=== PATIENT | female | born 1945 | race Caucasian/White ===

== ENCOUNTER 2016-08-24 06:59 | Day surgery (SDC) | payer MEDICARE ==
[~2016-08-24] VITALS: Ht 170.2 cm; Wt 73.6 kg
[2016-08-24] VITALS (10 sets, daily range): BP systolic 127–166; BP diastolic 62–78; PULSE 55–64; RESP 9–16; O2SAT 95–99
[~2016-08-24 06:59] MED LIST: ACET325T51 PO; CHOL5000 PO; FAMCICLOVIR; NAPR220C11 PO; THYR120T2 PO
[2016-08-24] MEDS ORDERED: fentaNYL-PF 50 mCg/mL 2 mL Inj ONE (07:00)
[2016-08-24] MEDS ORDERED: Dexamethasone 4 mg/mL Inj ONE (07:00)
[2016-08-24] MEDS ORDERED: MetoCLOpramide 5 mg/mL 2 mL Inj ONE (07:00)
[2016-08-24] MEDS ORDERED: Propofol 10,000 mCg/mL 20 mL Inj ONE (07:00)
[2016-08-24] MEDS ORDERED: Ketamine 10 mg/mL 20 mL Inj ONE (07:00)
[2016-08-24] MEDS ORDERED: Ondansetron 2 mg/mL 2 mL Inj ONE (07:00)
[2016-08-24] MEDS: Lactated Ringer's 1,000 ML IV SCH ×2 (07:17→08:41)
[2016-08-24] MEDS ORDERED: Lactated Ringer's 1,000 ML IV SCH (08:33)
[2016-08-24] MEDS ORDERED: Lactated Ringer's 500 ML IV PRN (08:33)
--- NOTE | 2016-08-24 08:33 | PCM.HPANE ---
Patient Data Surgeon Admitting Provider: Attending Provider:Arnaldo Dillon DO Primary Care Physician:Alphonso Montgomery MD Other Provider:Giles Felton Anesthesia Reason for Visit Right Knee Medial & Lateral Meniscus Tear Ht/WT & BMI Height (Feet): 5 Height (Inches): 7 Weight (Kilograms): 73.6 Body Mass Index 25.00 Allergies Coded Allergies: No Known Allergies (Unverified , 08/20/16) Past Anesthesia History Anesthesia History: Denies:: Abnormal Airway, Anesthesia Reactions, Difficult Intubation, Fam Anesthesia Reaction Diabetes History Hx Diabetes?: No MRSA MRSA: No Medications Hypertension Medication: No Home Meds Incl Beta Valerie: No Reported Medications [famcicilovir] No Conflict [id number] Mg Q8H takes when suspects shingles is coming on 08/23/16 Acetaminophen 325 Mg [id number] Mg PO Q4H PRN For Fever Ref 0 08/20/16 Naproxen Sodium (Aleve)220 Mg [id number] Mg PO Q12H PRN For Pain 08/20/16 Cholecalciferol (Vitamin D3) (Vitamin D3)5,000 Unit Capsule5,000 Unit PO DAILY 08/20/16 Thyroid,Pork ([place] Thyroid)120 Mg [id number] Mg PO DAILY 08/20/16 History HEENT History: Denies:: Abnormal Airway Cataracts Difficult Intubation Dysphagia Glaucoma Hearing Problem Sinus Problem TMJ Cardiovascular History: Denies:: AICD Abdominal Aortic Aneurism Atrial Fibrillation Chest Pain Congestive Heart Failure Coronary Artery Disease Edema Heart Murmur Hypertension Irregular Heartbeat Pacemaker Peripheral Vascular Rheumatic Fever Thrombophlebitis Hx of Respiratory Problem?: No Respiratory History: Denies:: Asthma COPD Emphysema Oxygen Administration Pneumonia Pulmonary Embolism Tuberculosis Use of C-PAP Machine Use of Inhalers / NEBS Hx Neurologic Problems?: No Neurological History: Denies:: Alzheimer's Disease CVA Dementia Dizziness Headaches Multiple Sclerosis Parkinson's Disease Seizures TIA Hx of GI Problems?: Yes Gastrointestinal History: Positive for:: Gall Bladder Disease (removed) Denies:: Cirrhosis Gastroesphageal Reflux Gastrointestinal Bleeding Hepatitis Liver Disease Hx of Problems?: No Genitourinary History: Denies:: Kidney Stones Urinary Tract Infection Female Hx: Denies:: Currently Problems with Breasts? Skin History: Denies:: History Skin Disorders? Pressure Ulcers Hx Musculoskeletal Problems?: Yes Musculoskeletal History: Positive for:: Musculoskeletal Trauma (right knee current admission problem) Osteoarthritis (right knee) Denies:: Back Injury Fibromyalgia Joint Replacement Systemic Lupus Hx of Psycho/Social Problems?: No Psycho Social History: Denies:: Anxiety Hx Depression Hx Surgeries?: Yes (corrine, c section) Hx Any Other Health Problems?: Yes Other History: Positive for:: Cancer (BCC- back, right leg ankle ) Thyroid Disease (on Rx) History Blood Transfusions: Positive for:: Accept Blood Products? Denies:: Blood Transfusions Hx Diabetes: No Hx Alcohol Use: NoHx Substance Use: NoHave You Smoked inLast 12 mo: No Stop/Bang Treated for Sleep Apnea?: No Do You Have a CPAP Machine?: No S-Snoring: Do You Snore Loudly: No T-Tired: feel tired, fatigued: No O-Obsered: Observed not breath: No P-Blood Pressure: treated: No B- Body Mass Index > 35 kg/m2: No A- Age over 50: Yes N- Neck Large Circumference: Yes G- Gender Male: No DARREL Total Score: 1 DARREL Risk Assessment: Low Risk, <3 Yes Risk Assessment Category Category 1A: Patient has history of documented sleep apnea, and HAS NOT received any narcotic, sedative or anesthesia administration during this stay. Category 1B: Patient has history of documented sleep apnea, and HAS received any narcotic , sedative or anesthesia administration during this stay Category 2: Patient has SUSPECTED Obstructive Sleep Apnea, and HAS received any narcotic , sedative or anesthesia administration during this stay. Category 3: Patient has SUSPECTED Obstructive Sleep Apnea and HAS NOT received narcotic, sedative or anesthesia administration during this stay. Category 4: Outpatient in Procedural Areas with known sleep apnea or who screen positive for High Risk via the STOP/BANG questionnaire. Exam Exam Vital Signs Vital Signs Date Time Temp Pulse Resp B/P Pulse Ox O2 Delivery O2 Flow Rate FiO2 08/24/16 07:31 35.7 64 16 166/78 95 Room Air General Appearance: Oriented X3 HEENT/AIRWAY: MP 2 Lungs: Normal Air Movement Heart: Regular Rate/Rhythm Meds/Labs/Diagnostics Admission Meds Current Medications Lactated Ringer's (Lr) 1,000 ml @ 120 mls/hr Q8H20M IV Last administered on t 07:17; Start 08/24/16 at 05:00; Stop 08/24/16 at 13:19 Plan Impression Patient chart reviewed, patient interviewed and anesthestic plan with risks, benefits, and alternatives discussed, and informed consent obtained. NPO Status: 08/23/16 1800 ASA Physical Status: ASA2 Mod Systemic Disease Anesthetic Plan: GA Bene/Risks/Altern/Consents: Yes HP Complete Prior to Induction: Yes Umair Mueller MD Aug 24, 2016 08:33
[2016-08-24] MEDS ORDERED: fentaNYL-PF 50 mCg/mL 2 mL Inj IVPUSH PRN (08:35)
[2016-08-24] MEDS ORDERED: HYDROmorphone 1 mg/mL Inj IVPUSH PRN (08:35)
[2016-08-24] MEDS ORDERED: Phenylephrine 10,000 mCg/mL Inj IVPUSH PRN (08:35)
[2016-08-24] MEDS ORDERED: Ondansetron 2 mg/mL 2 mL Inj IVPUSH PRN (08:35)
[2016-08-24] MEDS ORDERED: Dexamethasone 4 mg/mL Inj IVPUSH PRN (08:35)
[2016-08-24] MEDS ORDERED: EPHEDrine Sulfate 50 mg/mL Inj IVPUSH PRN (08:35)
[2016-08-24] MEDS ORDERED: MetoCLOpramide 5 mg/mL 2 mL Inj IVPUSH PRN (08:35)
[2016-08-24] MEDS ORDERED: Ropivacaine-PF 0.5% 30 mL Inj INFILTRATE ONE (08:55)
[2016-08-24] MEDS ORDERED: Lidocaine 2%-Epi 1:100,000 20 mL Inj INFILTRATE ONE (08:55)
[2016-08-24] MEDS ORDERED: HYDROcodone-APAP 5-325 mg Tablet PO PRN (09:55)
[2016-08-24] MEDS ORDERED: Lactated Ringer's 1,000 ML IV ONE (10:33)
--- NOTE | 2016-08-24 12:41 | PCM.ANEP1 ---
Post Anesthesia Phase 1 PACU Phase 1 Assessment Vital Signs Vital Signs Date Time Temp Pulse Resp B/P Pulse Ox O2 Delivery O2 Flow Rate FiO2 08/24/16 11:00 64 14 150/70 96 Room Air 08/24/16 10:30 64 10 156/68 98 Nasal Cannula 2 08/24/16 10:15 62 9 153/66 96 Room Air 08/24/16 10:05 36.0 62 9 133/66 99 Room Air 08/24/16 10:00 60 10 146/70 99 Simple Mask 8 08/24/16 09:55 59 10 135/63 99 Room Air 08/24/16 09:50 60 13 139/78 99 Simple Mask 8 08/24/16 09:45 55 10 133/65 99 Simple Mask 8 08/24/16 09:40 36.4 57 10 127/62 99 Simple Mask 8 08/24/16 07:31 35.7 64 16 166/78 95 Room Air Anesthetic Administered: GA Level of Alertness: Awake, talking Pain: No Nausea or Vomiting: No Airway Device: Oralpharangeal Airway Oxygen Delivery: Room Air Lungs: Normal Air Movement Umair Mueller MD Aug 24, 2016 12:41
--- NOTE | 2016-08-24 12:42 | PCM.ANEP2 ---
Post Anesthesia Evaluation ASA/CMS Post Anesthesia VS in Patient's Normal Range?: Yes Resp Stable; Airway Patent?: Yes CV Function & Hydration Stable: Yes Mental Status Recovered?: Yes Pain control Satisfactory?: Yes N/V Control Satisfactory?: Yes Umair Mueller MD Aug 24, 2016 12:41
--- NOTE | 2016-08-24 14:37 | OP ---
[address] [address] OPERATIVE REPORT PATIENT: FADI BEGUM : 1945 MR#: [id number] ADMIT: 08/24/2016 JOB ID: [id number] DATE OF SURGERY: 08/24/2016 PREOPERATIVE DIAGNOSIS(ES): Right knee torn medial meniscus and torn lateral meniscus. POSTOPERATIVE DIAGNOSIS(ES): PROCEDURE: Right knee video arthroscopy with partial medial and partial lateral meniscectomy with chondroplasty, loose chondral flap, and medial femoral condyles. SURGEON: Arnaldo Dillon D.O. WHEAT SHIPPER: None. ANESTHESIA: General. INDICATIONS: The patient is a 70-year-old female with right knee pain which began July 11 with a twisting injury. She had an MRI performed which demonstrated torn medial and torn lateral meniscus and she wished to proceed with a knee arthroscopy. We discussed the risks, benefits, and possible complications of surgery. All questions were answered. She wished to proceed. PROCEDURE IN DETAIL: The patient was brought to the operating room. She was given a preoperative LMA general anesthetic and the right lower extremity was sterilely prepped and draped. An incision was made over the anterolateral knee at the level of joint line and a blunt trocar was introduced into the knee. Inspection was undertaken. She was found to have degenerative changes in the patellofemoral joint, primarily on the trochlea. Her medial meniscus had degenerative tearing as well as a flap tear of the cartilage over the anterior medial femoral condyle. Her flap tear was resected back to a stable base with biters and shaver and the meniscus was also resected back to a stable base with a combination of biters and shaver. Her ACL was found to be intact. Her lateral compartment had a degenerative tearing of the lateral meniscus which was trimmed back to a stable base with a combination of biters and varun. 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 The scope was then removed. The portals were closed with interrupted nylon suture. Naropin was added as an adjunct local anesthetic. Sterile dressings were applied. Patient tolerated the procedure well. Blood loss was minimal. POSTOPERATIVE PROTOCOL: Have the patient weightbear to tolerance. Use crutches or walker for ambulation. Ice and elevate and followup in two weeks or sooner if needed. She is given a prescription for [place] 5/325 for pain.
== END 2016-08-24 23:59 | disposition home or self-care (01) ==
LOC: SAS 06:59
PROVIDERS: ATTEND Orthopaedic Surgery
DX: M23.241 Derangement of anterior horn of lateral meniscus due to old tear or injury, right knee (principal); M23.261 Derangement of other lateral meniscus due to old tear or injury, right knee; M94.261 Chondromalacia, right knee; M17.11 Unilateral primary osteoarthritis, right knee; E03.9 Hypothyroidism, unspecified; Z79.899 Other long term (current) drug therapy
CPT/HCPCS: 29881; J1170; J2795; J7120